=== PATIENT | male | born 1975 | race Caucasian/White ===

== ENCOUNTER 2019-06-16 18:26 | Inpatient (IN) | payer OTHER ==
[~2019-06-16] VITALS: Ht 182.9 cm; Wt 135.0 kg
[2019-06-16] MEDS ORDERED: AMLO2.5T4 PO (18:44)
[2019-06-16] MEDS ORDERED: ALPR1TAB7 PO (18:44)
[2019-06-16] MEDS ORDERED: HYDR-4069 PO (18:44)
[2019-06-16] MEDS ORDERED: LISI-660 PO (18:44)
[2019-06-16] MEDS ORDERED: ACETAMINOPHEN 325 MG TABLET PO PRN ×3 (19:00→19:45)
[2019-06-16] MEDS ORDERED: ONDANSETRON HCL 4 MG/2 ML VIAL IVP PRN ×2 (19:00→19:45)
[2019-06-16 19:25] LABS: BASOPHILS % (AUTO) 0.2 % (0.0-2.0); EOSINOPHILS % (AUTO) 0.3 % (1.0-6.0); HEMATOCRIT 42.8 % (41-53); HEMOGLOBIN 14.6 g/dL (13.5-17.5); LYMPHOCYTES # (AUTO) 0.8 K/uL (1.0-4.8); LYMPHOCYTES % (AUTO) 9.3 % (22.0-44.0); MEAN CORPUSCULAR HEMOGLOBIN 31.7 pg (26.0-34.0); MEAN CORPUSCULAR HGB CONC 34.2 G/dL (31.0-37.0); MEAN CORPUSCULAR VOLUME 93 fL (80-100); MONOCYTES # (AUTO) 0.5 K/uL (0.1-1.0); MONOCYTES % (AUTO) 5.9 % (2.0-9.0); NEUTROPHILS # (AUTO) 7.2 K/uL (1.8-7.7); NEUTROPHILS % (AUTO) 84.3 % (40.0-70.0); PLATELET COUNT (AUTO) 247 K/uL (150-450); RED BLOOD CELL COUNT(AUTO) 4.61 MIL/uL (4.50-5.90)
[2019-06-16] MEDS ORDERED: SODIUM CHLORIDE 0.45% 1,000 ML IV SCH (19:43)
[2019-06-16] MEDS ORDERED: IPRATROPIUM BROMIDE 0.5 MG/2.5 ML NEB SOLUTION NEB PRN (19:45)
[2019-06-16] MEDS ORDERED: MAG HYDROX/AL HYDROX/SIMETH ES 30 ML SUSPENSION UDCUP PO PRN (19:45)
[2019-06-16] MEDS ORDERED: BISACODYL 10 MG RECTAL RECTAL SUPPOSITORY PR PRN (19:45)
[2019-06-16] MEDS ORDERED: MAGNESIUM HYDROXIDE SUSPENSION 30 ML UDCUP PO PRN (19:45)
[2019-06-16] MEDS ORDERED: ALBUTEROL SULFATE 2.5 MG/0.5 ML NEB SOLUTION NEB PRN (19:45)
[2019-06-16] MEDS ORDERED: ZOLPIDEM TARTRATE 5 MG TABLET PO PRN (19:45)
[2019-06-16] MEDS ORDERED: PROMETHAZINE HCL 25 MG TABLET PO PRN (19:45)
[2019-06-16 19:51] LABS: ANION GAP 10 mmol/L (8-16); CALCIUM, TOTAL 9.4 mg/dL (8.8-10.5); CARBON DIOXIDE 29 mmol/L (22-29); CHLORIDE 100 mmol/L (98-107); CREATININE 0.88 mg/dL (0.60-1.30); GLOMERULAR FILTR. RATE CALC > 60 mL/min (>60); GLUCOSE,RANDOM 108 mg/dL (70-110); POTASSIUM 3.4 mmol/L (3.5-5.1); SODIUM SERUM 139 mmol/L (136-145); UREA NITROGEN, BLOOD 8 mg/dL (7-18)
[2019-06-16 19:57] LABS: ALANINE AMINOTRANSFERASE 39 U/L (12-78); ALBUMIN 4.4 g/dL (3.4-5.0); ALKALINE PHOSPHATASE 97 U/L (46-116); ASPARTATE AMINOTRANSFERASE 22 U/L (15-37); BILIRUBIN,TOTAL 0.5 mg/dL (0.1-1.0); TOTAL PROTEIN, SERUM 7.6 g/dL (6.4-8.2)
[2019-06-16 20:18] LABS: AMPHET/METH SCREEN,URINE NEGATIVE (NEGATIVE); BARBITURATE SCREEN, URINE NEGATIVE (NEGATIVE); BENZODIAZEPINES SCREEN,URINE POSITIVE (NEGATIVE); CANNABINOID SCREEN,URINE POSITIVE (NEGATIVE); COCAINE SCREEN,URINE NEGATIVE (NEGATIVE); METHADONE SCREEN, URINE NEGATIVE (NEGATIVE); OPIATE SCREEN,URINE POSITIVE (NEGATIVE)
[2019-06-16 20:20] LABS: PHENCYCLIDINE SCREEN,URINE NEGATIVE (NEGATIVE)
[2019-06-16 21:00] VITALS: BP 147/68
[2019-06-16] MEDS: LORazepam 1 MG TABLET PO PRN (21:12)
[2019-06-16] MEDS: CloNIDine HCL 0.1 MG TABLET PO PRN (22:35)
[2019-06-16] MEDS: BACLOFEN 10 MG TABLET PO PRN (22:36)
[2019-06-16 23:00] VITALS: BP 147/86
[2019-06-17] MEDS: TraZODone HCL 50 MG TABLET PO PRN (00:59)
[2019-06-17] MEDS: IBUPROFEN 600 MG TABLET PO PRN ×3 (04:01→20:08)
[2019-06-17] MEDS: LORazepam 1 MG TABLET PO PRN ×3 (04:01→20:13)
[2019-06-17 04:55] VITALS: BP 166/69
[2019-06-17] MEDS: BACLOFEN 10 MG TABLET PO PRN ×3 (06:13→20:09)
[2019-06-17] MEDS: HEPARIN SODIUM,PORCINE 5,000 UNITS/ML VIAL SQ SCH ×3 (07:43→16:09)
[2019-06-17] MEDS: HydrOXYzine PAMOATE 50 MG CAPSULE PO PRN (07:43)
[2019-06-17] MEDS ORDERED: POTASSIUM CHL 10 MEQ/WATER 50 ML IV PRN (08:30)
[2019-06-17 08:40] VITALS: BP 155/84
[2019-06-17] MEDS ORDERED: AmLODIPine BESYLATE 10 MG TABLET PO SCH (09:00)
[2019-06-17] MEDS ORDERED: LISINOPRIL 20 MG TABLET PO SCH (09:00)
[2019-06-17] MEDS: POTASSIUM CHLORIDE 20 MEQ ER TABLET PO PRN (09:04)
[2019-06-17] MEDS: LOPERAMIDE HCL 2 MG CAPSULE PO PRN ×3 (11:54→22:19)
[2019-06-17] MEDS: CloNIDine HCL 0.1 MG TABLET PO PRN (13:07)
[2019-06-17 16:40] VITALS: BP 145/74
[2019-06-17 21:00] VITALS: BP 116/62
[2019-06-17 21:22] VITALS: BP 116/62
[2019-06-18] VITALS (7 sets, daily range): BP systolic 118–154; BP diastolic 49–103
[2019-06-18] MEDS: HEPARIN SODIUM,PORCINE 5,000 UNITS/ML VIAL SQ SCH (00:46)
[2019-06-18] MEDS: CloNIDine HCL 0.1 MG TABLET PO PRN (03:43)
[2019-06-18] MEDS: LORazepam 1 MG TABLET PO PRN ×2 (03:44→18:10)
[2019-06-18] MEDS: BACLOFEN 10 MG TABLET PO PRN ×2 (07:49→16:27)
[2019-06-18] MEDS ORDERED: MAG HYDROX/AL HYDROX/SIMETH ES 30 ML SUSPENSION UDCUP PO PRN (08:00)
[2019-06-18] MEDS ORDERED: IBUPROFEN 600 MG TABLET PO PRN (08:00)
[2019-06-18] MEDS ORDERED: DIAZEPAM 5 MG TABLET PO PRN (08:00)
[2019-06-18] MEDS ORDERED: HydrOXYzine PAMOATE 50 MG CAPSULE PO PRN (08:00)
[2019-06-18 08:58] LABS: ALANINE AMINOTRANSFERASE 40 U/L (12-78); ALBUMIN 4.4 g/dL (3.4-5.0); ALKALINE PHOSPHATASE 100 U/L (46-116); ANION GAP 10 mmol/L (8-16); ASPARTATE AMINOTRANSFERASE 17 U/L (15-37); BILIRUBIN,TOTAL 0.6 mg/dL (0.1-1.0); CALCIUM, TOTAL 9.3 mg/dL (8.8-10.5); CARBON DIOXIDE 27 mmol/L (22-29); CHLORIDE 105 mmol/L (98-107); CREATININE 1.03 mg/dL (0.60-1.30); GLOMERULAR FILTR. RATE CALC > 60 mL/min (>60); GLUCOSE,RANDOM 109 mg/dL (70-110); POTASSIUM 3.4 mmol/L (3.5-5.1); SODIUM SERUM 142 mmol/L (136-145); TOTAL PROTEIN, SERUM 7.7 g/dL (6.4-8.2); UREA NITROGEN, BLOOD 12 mg/dL (7-18)
[2019-06-18] MEDS: LOPERAMIDE HCL 2 MG CAPSULE PO PRN ×2 (09:23→13:04)
[2019-06-18] MEDS: POTASSIUM CHLORIDE 20 MEQ ER TABLET PO PRN (09:52)
[2019-06-18] MEDS: CloNIDine HCL 0.1 MG TABLET PO SCH ×3 (11:54→22:00)
[2019-06-18] MEDS: RIVAROXABAN 20 MG TABLET PO SCH (16:26)
[2019-06-18] MEDS: TraZODone HCL 50 MG TABLET PO PRN (20:09)
[2019-06-19] MEDS: IBUPROFEN 600 MG TABLET PO PRN ×2 (01:52→11:09)
[2019-06-19] MEDS: LORazepam 1 MG TABLET PO PRN ×2 (01:54→14:41)
[2019-06-19] MEDS: BACLOFEN 10 MG TABLET PO PRN ×2 (01:54→11:10)
[2019-06-19 04:40] VITALS: BP 148/75
[2019-06-19] MEDS: CloNIDine HCL 0.1 MG TABLET PO SCH ×4 (04:45→21:19)
[2019-06-19 07:43] VITALS: BP 166/96
[2019-06-19] MEDS ORDERED: DIAZEPAM 5 MG TABLET PO PRN (08:00)
[2019-06-19 11:00] LABS: BASOPHILS % (AUTO) 0.6 % (0.0-2.0); EOSINOPHILS % (AUTO) 0.7 % (1.0-6.0); HEMATOCRIT 48.1 % (41-53); HEMOGLOBIN 16.1 g/dL (13.5-17.5); LYMPHOCYTES # (AUTO) 1.4 K/uL (1.0-4.8); LYMPHOCYTES % (AUTO) 17.9 % (22.0-44.0); MEAN CORPUSCULAR HEMOGLOBIN 31.3 pg (26.0-34.0); MEAN CORPUSCULAR HGB CONC 33.4 G/dL (31.0-37.0); MEAN CORPUSCULAR VOLUME 94 fL (80-100); MONOCYTES # (AUTO) 0.6 K/uL (0.1-1.0); MONOCYTES % (AUTO) 6.9 % (2.0-9.0); NEUTROPHILS # (AUTO) 5.9 K/uL (1.8-7.7); NEUTROPHILS % (AUTO) 73.9 % (40.0-70.0); PLATELET COUNT (AUTO) 229 K/uL (150-450); RED BLOOD CELL COUNT(AUTO) 5.13 MIL/uL (4.50-5.90)
[2019-06-19 15:18] VITALS: BP 152/101
[2019-06-19] MEDS: RIVAROXABAN 20 MG TABLET PO SCH (17:53)
[2019-06-19 20:12] VITALS: BP 132/49
[2019-06-19] MEDS: LOPERAMIDE HCL 2 MG CAPSULE PO PRN (22:00)
[2019-06-20] MEDS: DICYCLOMINE HCL 10 MG CAPSULE PO PRN ×2 (01:09→20:22)
[2019-06-20 05:07] VITALS: BP 147/74
[2019-06-20] MEDS: CloNIDine HCL 0.1 MG TABLET PO SCH ×5 (05:41→22:16)
[2019-06-20 08:44] VITALS: BP 135/84
[2019-06-20] MEDS: DIAZEPAM 5 MG TABLET PO PRN ×2 (09:00→20:22)
[2019-06-20 10:34] LABS: BASOPHILS % (AUTO) 0.3 % (0.0-2.0); EOSINOPHILS % (AUTO) 0.9 % (1.0-6.0); HEMATOCRIT 47.6 % (41-53); HEMOGLOBIN 15.9 g/dL (13.5-17.5); LYMPHOCYTES # (AUTO) 1.4 K/uL (1.0-4.8); LYMPHOCYTES % (AUTO) 15.3 % (22.0-44.0); MEAN CORPUSCULAR HEMOGLOBIN 31.2 pg (26.0-34.0); MEAN CORPUSCULAR HGB CONC 33.3 G/dL (31.0-37.0); MEAN CORPUSCULAR VOLUME 94 fL (80-100); MONOCYTES # (AUTO) 0.6 K/uL (0.1-1.0); MONOCYTES % (AUTO) 6.9 % (2.0-9.0); NEUTROPHILS # (AUTO) 6.8 K/uL (1.8-7.7); NEUTROPHILS % (AUTO) 76.6 % (40.0-70.0); PLATELET COUNT (AUTO) 233 K/uL (150-450); RED BLOOD CELL COUNT(AUTO) 5.08 MIL/uL (4.50-5.90); RED CELL DISTRIBUTION WIDTH 14.2 % (11.5-14.5)
[2019-06-20 10:41] LABS: ANION GAP 13 mmol/L (8-16); CALCIUM, TOTAL 9.6 mg/dL (8.8-10.5); CARBON DIOXIDE 26 mmol/L (22-29); CHLORIDE 103 mmol/L (98-107); CREATININE 0.94 mg/dL (0.60-1.30); GLOMERULAR FILTR. RATE CALC > 60 mL/min (>60); GLUCOSE,RANDOM 106 mg/dL (70-110); POTASSIUM 3.5 mmol/L (3.5-5.1); SODIUM SERUM 142 mmol/L (136-145); UREA NITROGEN, BLOOD 17 mg/dL (7-18)
[2019-06-20] MEDS: POTASSIUM CHLORIDE 20 MEQ ER TABLET PO PRN (11:17)
[2019-06-20] MEDS: CloNIDine HCL 0.1 MG TABLET PO PRN ×2 (15:42→20:22)
[2019-06-20 15:49] VITALS: BP 140/67
[2019-06-20] MEDS: RIVAROXABAN 20 MG TABLET PO SCH (17:18)
[2019-06-20] MEDS ORDERED: DiphenhydrAMINE HCL 25 MG CAPSULE PO PRN (19:00)
[2019-06-20 19:50] VITALS: BP 147/93
[2019-06-20] MEDS: HYDROCORTISONE 2.5% 30 GM CREAM TP PRN (21:13)
[2019-06-20] MEDS: LOPERAMIDE HCL 2 MG CAPSULE PO PRN (23:37)
[2019-06-21] MEDS: TraZODone HCL 50 MG TABLET PO PRN (01:45)
[2019-06-21] MEDS: IBUPROFEN 600 MG TABLET PO PRN (03:53)
[2019-06-21] MEDS: DICYCLOMINE HCL 10 MG CAPSULE PO PRN (03:53)
[2019-06-21 05:11] VITALS: BP 139/85
[2019-06-21] MEDS: CloNIDine HCL 0.1 MG TABLET PO SCH ×4 (05:28→21:10)
[2019-06-21] MEDS: BACLOFEN 10 MG TABLET PO PRN (05:28)
[2019-06-21] MEDS ORDERED: DIAZEPAM 5 MG TABLET PO ONE (08:00)
[2019-06-21 08:43] VITALS: BP 146/92
[2019-06-21] MEDS: HYDROCORTISONE 2.5% 30 GM CREAM TP PRN (11:21)
[2019-06-21] MEDS: CloNIDine HCL 0.1 MG TABLET PO PRN (14:17)
[2019-06-21 15:59] VITALS: BP 134/65
[2019-06-21] MEDS: RIVAROXABAN 20 MG TABLET PO SCH (17:36)
[2019-06-21 20:01] VITALS: BP 144/83
[2019-06-22] MEDS: CloNIDine HCL 0.1 MG TABLET PO PRN (01:22)
[2019-06-22 01:23] VITALS: BP 152/84
[2019-06-22 04:33] VITALS: BP 152/94
[2019-06-22] MEDS: CloNIDine HCL 0.1 MG TABLET PO SCH ×2 (05:16→11:35)
[2019-06-22] MEDS: LOPERAMIDE HCL 2 MG CAPSULE PO PRN (06:11)
[2019-06-22] MEDS: BACLOFEN 10 MG TABLET PO PRN (08:40)
[2019-06-22] MEDS: HydrOXYzine PAMOATE 50 MG CAPSULE PO PRN (08:40)
[2019-06-22 08:58] VITALS: BP 133/93
[2019-06-22] MEDS ORDERED: LISI-662 PO (14:07)
[2019-06-22] MEDS ORDERED: CLON-465 PO (14:08)
[2019-06-22 15:34] VITALS: BP 139/90
== END 2019-06-22 16:00 | DRG 897 ==
LOC: EMS 18:26 → 6S 20:00
PROVIDERS: ADMIT Hospitalist; ATTEND Hospitalist
DX: F11.23 Opioid dependence with withdrawal (principal); I10 Essential (primary) hypertension; G89.29 Other chronic pain; M54.9 Dorsalgia, unspecified; F12.90 Cannabis use, unspecified, uncomplicated; E87.6 Hypokalemia; E66.01 Morbid (severe) obesity due to excess calories; F13.239 Sedative, hypnotic or anxiolytic dependence with withdrawal, unspecified; Z88.0 Allergy status to penicillin; Z88.8 Allergy status to other drugs, medicaments and biological substances
CPT/HCPCS: 84132; J1644